=== PATIENT | male | born 1945 | race Caucasian/White ===

== ENCOUNTER 2021-09-06 16:08 | Observation (INO) | payer MEDICARE, BC, SELFPAY ==
[2021-09-06] VITALS (10 sets, daily range): BP systolic 156–207; BP diastolic 67–109; PULSE 64–88; RESP 12–18; TEMP 36.6–36.9; O2SAT 97–98; BMI 34.7
[2021-09-06] MEDS: hydrALAZINE 20 MG/ML Vial 10 MG IV (16:07)
--- NOTE | 2021-09-06 16:08 | PCM.HP.STD ---
HPI - General General Date of Admission: 09/06/21 Date of Service: 09/06/21 HPI Narrative KIRSTEN BROOKS, is a 76 M who is being directly admitted from [facility] for syncope. As per the was the witness, they are having breakfast in the deck in the morning. At the end of the breakfast, he suddenly passed out with no prodromal symptoms of chest pain/pressure, nausea, vomiting headache but he was diaphoretic. It lasted for about 1 minute and then he woke up with mild unawareness/confusion of the surrounding. He said at that time his was calling EMS and then was taken to [facility]. There he had a basic work-up done which did not show any remarkable abnormality. Potassium 3.6. Anion gap 11. Patient has history of CLL and his WBC count is chronically elevated. CBC shows 29.4 thousand WBC count, platelet 128,000. Magnesium 1.8. Chest x-ray reported normal. Twelve-lead EKG shows A. fib LAD RBBB, chronic old inferior infarct. 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 CLL (chronic lymphocytic leukemia) Essential hypertension Hypokalemia correction current use of anticoagulant Longstanding persistent atrial fibrillation Obstructive sleep apnea Old inferior wall myocardial infarction ST elevation (STEMI) myocardial infarction involving right coronary artery (04/2005) Tachy-kennedy syndrome Home Medications amlodipine 5 mg tablet 10 mg PO DAILY tab 09/02/21 [History Last Taken 09/06/21] atorvastatin 20 mg tablet 20 mg PO QHS #60 tab 09/02/21 [Rx Last Taken 09/05/21] clonidine HCl 0.1 mg tablet 0.1 mg PO BID #90 tab 09/02/21 [Rx Last Taken 09/06/21] doxazosin 8 mg tablet 8 mg PO QHS 09/02/21 [History Last Taken 09/05/21] hydralazine 50 mg tablet 50 mg PO TID #180 tab 09/02/21 [Rx Last Taken 09/06/21] losartan 100 mg tablet 100 mg PO DAILY #90 tab 09/02/21 [Rx Last Taken 09/06/21] potassium chloride 20 mEq tablet,extended release(part/cryst) 20 meq PO BID #180 tab 09/02/21 [Rx Last Taken 09/06/21] warfarin 5 mg tablet 5 mg PO QHS tab 09/02/21 [History Last Taken 09/04/21] warfarin 2.5 mg PO DAILY 09/06/21 [History Last Taken 09/05/21] Allergy/AdvReac Type Severity Reaction Status Date / Time Iodinated Contrast Media Allergy SOB Verified 09/02/21 11:47 Surgical History History of cardioversion (2013) History of coronary artery stent placement History of left heart catheterization (11/28/07) Social History Smoking Status: Former smoker ROS ROS Narrative Constitutional: Mild confusion after waking from syncope. On baseline now. HEENT: Reports systems reviewed and no addt'l complaints, except as documented Respiratory/Chest: Denies chest pain, shortness of breath at rest or with exertion Gastrointestinal: Denies coffee ground emesis, hematemesis or vomiting Genitourinary: Denies burning urination or new urinary tract symptoms Musculoskeletal: No joint pain and limited range of motion Neurologic: Denies seizure-like activity. No history of a stroke skin: Rash, scabbed over right side of neck behind the ear. Pain over the rash Endocrinology: Reports systems reviewed and no addt'l complaints, except as documented Hematologic/Lymphatic: CLL. Leukocytosis reports systems reviewed and no addt'l complaints, except as documented Patient not vaccinated with shingles. His had shingles couple years ago Rest 14 ROS are negative except as mentioned in HPI Vital Signs Vital Signs Vital Signs: 09/06/21 15:20 09/06/21 15:59 Temperature 98.4 F Temperature Source Oral Pulse Rate 72 Respiratory Rate 16 Respiratory Effort Normal Non-Labored Respiratory Depth Normal Respiratory Pattern Irregular Blood Pressure 207/94 H Blood Pressure Mean 131 Blood Pressure Source Monitor Blood Pressure Position Semi-Fowlers Blood Pressure Location Left Arm Pulse Ox 97 Oxygen Delivery Method Room Air Room Air Weight Weight: 228 lb 4 oz Body Mass Index (BMI) 34.7 Physical Exam Narrative Physical exam General: Alert, Oriented x3, Cooperative HEENT: Atraumatic, PERRLA, EOMI, Normocephalic Oral: No Gingival or Mucosal Lesions/ Ulcerations Neck: Supple, No JVD, Negative Carotid Bruits Lungs: Air entry equal in bilateral lung bases. No crepitation/rhonchi Cardiovascular: Irregular rhythm, A. fib, Normal S1, Normal S2, No murmurs Abdomen: Bowel Sounds Present, Soft, Non Tender, Non-Distended : No renal angle tenderness. No suprapubic tenderness. Extremities: No edema, Capillary Refill Less than 3 Seconds Skin: Brownish/black color discrete scabs over right side of neck behind the ear on posterior auricular nerve distribution. Mild tenderness. Musculoskeletal: No Tenderness to Palpation of Joints or Extremities Neurological: Cranial nerves II-XII grossly intact, DTR 2+/4 and Symmetrical, Neuro grossly intact Psych/Mental Status: Normal Affect, Appropriate. Assessment & Plan Assessment/Plan (1) Syncope: QUALIFIERS: Syncope type: vasovagal syncope Qualified Code(s): R55 - Syncope and collapse (2) Tachy-kennedy syndrome: PLAN: 1. Syncope most probably vasovagal or cardiogenic with history of paroxysmal A. fib on warfarin: Patient is being admitted in PCU As direct transfer from [facility]. Patient did not had any chest pain shortness of breath, palpitation. Patient had several serial troponin 3 all less than 35, negative. 2D echo ordered. Orthostatic vitals. Discussed with electrical panel builder Dr. Raymond and consult requested. Patient has event monitor as a part of trial study which was supposed to come out today. Needs review of event monitor rhythm strip. Patient saw Dr. Raymond on 09/02 for some sinus pauses on the monitor. Hold warfarin for anticipation of possible pacemaker insertion. 2. Essential hypertension: Patient blood pressure is elevated. He said his blood pressure was 130/80 in surgeons office as mentioned below. Probably patient not take today's medicine. Continue losartan 100 mg daily, Norvasc 10 mg daily, clonidine 0.1 mg twice daily and hydralazine 50 mg 3 times daily. Continue potassium supplement 20 M EQ twice daily as patient has history of chronic hypokalemia. 3. Right posterior auricular nerve distribution healed/scabbed rash most probably shingles: Patient had rash started as discrete visible rash which is scabbed black in color now. He saw surgeon and had a biopsy on last Tuesday. Patient is still has pain which is intermittently controlled by hydrocodone. Patient wants hydrocodone therefore continued. He agreed for Lyrica as gabapentin did not work in the past for neuropathic pain 4. Chronic A. fib on warfarin: Heart rate is controlled, 72/min, A. fib. Hold warfarin as mentioned above 5. History of coronary artery disease status post stent: Patient had cardiac stent in 2005. Last heart cath in 2013 for chest discomfort in [facility] he had BEN in L[place]. Last stress test was in 2018 and no evidence of ischemia was noted. He EF was low normal with wall motion segmental abnormalities found in the past. No echo in our system therefore 2D echo ordered admission of 6. CLL: WBC is chronically elevated. VTE prophylaxis, moderate risk: Bilateral SCDs. Hold warfarin. Living will/advanced directive/end of life care: Patient does not have living will or advanced directive. After discussion of benefits/risks procedures involved with full code, DNR CC arrest and DNR CC, the patient opted for full code. Patient does want artificial life support including intubation, tube feed, ventilator and/chest compression, central venous catheter, vasopressor and DC shock if needed Total time spent in [id number] encounter in discussion of advanced directive 16 minutes. Charges/Coding Visit Charges OBSV E&M: 27060 Initial observation care L3 Procedures Hospitalists Procedures: 85180 Advncd Care Plan 30 Min
[2021-09-06 17:08] LABS: International Normalized Ratio 2.7; Prothrombin Time (Protime)PT. 28.1 SECONDS (11.7-14.9)
[2021-09-06 17:20] LABS: Magnesium 1.7 mg/dL (1.6-2.6); Phosphorus 3.5 mg/dL (2.5-4.9)
[2021-09-06] MEDS: amLODIPine 10 MG Tablet PO (17:24)
[2021-09-06] MEDS: Pregabalin 50 MG Capsule PO ×2 (17:24→23:21)
[2021-09-06] MEDS: hydrALAZINE 50 MG Tablet PO ×2 (17:24→23:21)
[2021-09-06] MEDS: Lactated Ringers 1,000 ML 75 ML IV (17:33)
[2021-09-06] MEDS: Losartan Potassium 100 MG Tablet PO (18:43)
[2021-09-06] MEDS: HYDROcodone Bitartrate/Apap 5/325 Tablet PO (18:48)
[2021-09-06] MEDS: cloNIDine HCl 0.1 MG Tablet PO (23:21)
[2021-09-06] MEDS: Potassium Chloride Oral Tablet 20 MEQ PO (23:22)
[2021-09-06] MEDS: Doxazosin 4 MG Tablet 8 MG PO (23:22)
[2021-09-06] MEDS: Atorvastatin Calcium 20 MG Tablet PO (23:22)
[2021-09-07] VITALS (12 sets, daily range): BP systolic 153–179; BP diastolic 73–84; PULSE 56–88; RESP 18; TEMP 36.3–36.6; O2SAT 95–97
[2021-09-07] MEDS: hydrALAZINE 50 MG Tablet PO ×2 (05:14→15:52)
--- NOTE | 2021-09-07 05:55 | ECHOCS_ITS ---
Reason For Study: Syncope Procedure This was a 2D Doppler, Color Flow transthoracic echocardiogram. The study was technically difficult. Contrast injection was performed. Exam performed portable in patient room. Left Ventricle Normal LV size. Moderate assymetric septal hypertrophy. Moderate eccentric left ventricular hypertrophy. Left ventricular systolic function is normal. The estimated ejection fraction is 60 %. No regional wall motion abnormalities noted. Right Ventricle Normal RV size. Normal systolic function. Atria The left atrium is moderately enlarged. The right atrium is moderately enlarged. Mitral Valve There is mild mitral annular calcification. Tricuspid Valve Normal tricuspid valve. Aortic Valve Trisinus/trileaflet aortic valve. Mild focal aortic valve calcification. Pulmonic Valve Normal pulmonic valve. Great Vessels Normal aortic root. The pulmonary artery is normal size. Normal inferior vena cava. Pericardium/Pleural No pericardial effusion. Medication Diluted definity 3ml given slow IV push to enhance endocardial definition. MMode/2D Measurements & Calculations LVIDd: 5.1 cm IVSd: 1.6 cm LVOT diam: 2.0 cm LVIDs: 3.1 cm LVPWd: 1.7 cm RVDd: 5.1 cm FS: 38.8 % LVOT area: 3.0 cm2 Ao root diam: 4.0 cm LAV(MOD-bp): 92.8 ml LA A4 area: 26.1 cm2 LAV(MOD-bp) Indexed: 42.9 ml/m2 LAV(MOD-sp2): 95.7 ml LAV(MOD-sp4): 84.6 ml RA A4 area: 25.8 cm2 Doppler Measurements & Calculations MV E max keith: 143.9 cm/sec Ao V2 max: 181.5 cm/sec LV V1 max: 145.7 cm/sec Ao max P.2 mmHg LV V1 max P.5 mmHg ACRLA(V,D): 2.4 cm2 MR max keith: 537.7 cm/sec PA V2 max: 110.2 cm/sec MR max P.7 mmHg ECHO/Echo Complete W/ Contrast Interpretation Summary Normal LV size. Moderate assymetric septal hypertrophy. Moderate eccentric left ventricular hypertrophy. Left ventricular systolic function is normal. The estimated ejection fraction is 60 %. Contrast injection was performed. Ordering Physician: Matt Grace Referring Physician: Villa Sparks Performed By: Skyler Betancourt RCS
[2021-09-07 06:08] LABS: Absolute Lymphocyte Count 23.43 X10^3/uL (0.83-4.51); Absolute Neutrophil Count 3.2 X10^3/uL (2.0-7.7); Basophil# 0.05 X10^3/uL; Basophil% 0.2 % (0-1); Eosinophil# 0.21 X10^3/uL; Eosinophils% 0.8 % (0-5); Hematocrit 34.4 % (40-54); Hemoglobin 11.1 g/dL (13.0-16.5); Lymphocyte # 23.43 X10^3/ul (0.83-4.51); Lymphocyte % 85.1 % (19-41); Mean Corp Hgb Conc 32.3 g/dL (32-36); Mean Corpuscular Hgb 32.7 pg (27.0-32.0); Mean Corpuscular Volume 101.5 fL (80-94); Mean Platelet Vol. 10.7 fl (6.2-12.0); Monocyte# 0.67 X10^3/uL; Monocyte% 2.4 % (0-10); NRBC Flagged by Analyzer 0 % (0-5); Neutrophil # 3.16 X10^3/uL (2.7-7.7); Neutrophil % 11.4 % (47-70); POSITIVE DIFFERENTIAL YES; POSITIVE MORPHOLOGY YES; Platelet Count 133 K/mm3 (150-450); RBC Distribution Width CV 14.8 % (11.6-14.6); RBC Distribution Width SD 54.7 fl (35.1-43.9); Red Blood Count 3.39 M/mm3 (4.6-6.2); White Blood Count 27.5 K/mm3 (4.4-11.0)
[2021-09-07 06:14] LABS: Differential Indicated SCAN CRITERIA MET
[2021-09-07 06:38] LABS: International Normalized Ratio 2.6; Prothrombin Time (Protime)PT. 27.9 SECONDS (11.7-14.9)
[2021-09-07 07:01] LABS: Anion Gap 4 (5-15); BUN 27 mg/dL (7-18); BUN/Creat Ratio 24.5 RATIO (10-20); Calcium,Total 9.3 mg/dL (8.5-10.1); Chloride 110 mmol/L (98-107); EST Glomerular Filtration Rate 69 mL/min (>60); Est Glom Filt Rate - Afr Amer 83 mL/min (>60); Estimated Creatinine Clearance 53.55 ml/min; Glucose 95 mg/dL (74-106); Sodium Level 140 mmol/L (136-145); Thyroid Stim Hormone (TSH) 0.71 uIU/mL (0.358-3.74)
[2021-09-07 07:03] LABS: Anisocytosis 2+; Macrocytosis 2+
--- NOTE | 2021-09-07 09:08 | CON.PCM.CA_ITS ---
Assessment & Plan Assessment/Plan (1) Syncope: QUALIFIERS: Syncope type: vasovagal syncope Qualified Code(s): R55 - Syncope and collapse PLAN: He does have a recent episode of syncope. It is not clear whether this is due to a significant bradycardia arrhythmia. He had his event monitor in place and I would recommend that we attempt to get the rhythm strip to see whether there were any changes. Depending on those findings further recommendations will be made. (2) Longstanding persistent atrial fibrillation: PLAN: He does have evidence of longstanding persistent atrial fibrillation with a controlled ventricular response rate. The plan to be to continue him on the current medical therapy. We will hold the anticoagulation in the interim. (3) History of coronary artery stent placement: PLAN: He is status post previous angioplasty and stenting. He has not exhibited any angina and I do not think that he needs to be evaluated for any ischemic event. (4) Essential hypertension: PLAN: His blood pressure is suboptimally controlled at this particular time. I would recommend optimization of his blood pressure medication. He did have some changes to his clonidine and a change to his losartan as well as the hydralazine as noted prior. (5) Tachy-kennedy syndrome: PLAN: It is possible that he has tachybradycardia syndrome and may require evaluation with a permanent pacemaker at some point. I would like to see the results of his event monitor before making this decision. Thank you for allowing me to participate in the care of your patient. Please don't hesitate to call if any issues arise. HPI Consult Data Date of Consult: 09/07/21 HPI Narrative HPI Narrative: KIRSTEN BROOKS, is a 76 M who presents with a syncopal episode which happened while he was at a restaurant eating. We had just seen him in the office for evaluation.He has a history of chronic atrial fibrillation who is not on beta-milagros or calcium channel milagros who was noted to have pauses on his event monitor. He does have a history of coronary artery disease, chronic atrial fibrillation, chronic lymphocytic leukemia, and hypertension. His coronary disease was diagnosed in 2005 when he presented with an inferior [place] cardial infarction and underwent a drug-eluting stent placed to the right coronary artery. In 2007 he presented with chest discomfort underwent a repeat left heart catheterization which demonstrated patent stent noted in the right coronary artery minimal disease noted in the LAD and circumflex artery. His ejection fraction was low normal with wall motion abnormalities noted. In 2013 he presented with chest discomfort went to [place] emergency room was transferred to [facility] and underwent a repeat cardiac catheterization and was noted to have disease in the LAD and underwent a stent placement with a drug-eluting stent to the left anterior descending artery. He did undergo stress testing in 2018 and no evidence of ischemia was noted. He has had a long history of hypertension and has been on medication. it appears that more recently he has developed atrial fibrillation and had a monitor placed and was noted to have bradycardia arrhythmia especially during sleep. The however have been no pauses noted greater than 4 seconds. He is on a high dose of clonidine. He is completely asymptomatic from his atrial fibrillation he has had no dizziness or diaphoresis no near syncope or syncope no shortness of breath. His EKG demonstrates atrial fibrillation with a controlled ventricular response rate. No significant pauses are noted. He still has his event monitor in place. His physical exam demonstrates clear lung soto irregular rate and rhythm and no pedal edema. 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 CLL (chronic lymphocytic leukemia) Essential hypertension Hypokalemia intermediate current use of anticoagulant Longstanding persistent atrial fibrillation Obstructive sleep apnea Old inferior wall myocardial infarction ST elevation (STEMI) myocardial infarction involving right coronary artery (04/2005) Tachy-kennedy syndrome Home Medications amlodipine 5 mg tablet 10 mg PO DAILY tab 09/02/21 [History Last Taken 09/06/21] atorvastatin 20 mg tablet 20 mg PO QHS #60 tab 09/02/21 [Rx Last Taken 09/05/21] clonidine HCl 0.1 mg tablet 0.1 mg PO BID #90 tab 09/02/21 [Rx Last Taken 09/06/21] doxazosin 8 mg tablet 8 mg PO QHS 09/02/21 [History Last Taken 09/05/21] hydralazine 50 mg tablet 50 mg PO TID #180 tab 09/02/21 [Rx Last Taken 09/06/21] losartan 100 mg tablet 100 mg PO DAILY #90 tab 09/02/21 [Rx Last Taken 09/06/21] potassium chloride 20 mEq tablet,extended release(part/cryst) 20 meq PO BID #180 tab 09/02/21 [Rx Last Taken 09/06/21] warfarin 5 mg tablet 5 mg PO QHS tab 09/02/21 [History Last Taken 09/04/21] warfarin 2.5 mg PO DAILY 09/06/21 [History Last Taken 09/05/21] Allergy/AdvReac Type Severity Reaction Status Date / Time Iodinated Contrast Media Allergy SOB Verified 09/02/21 11:47 Surgical History History of cardioversion (2013) History of coronary artery stent placement History of left heart catheterization (11/28/07) Social History Smoking Status: Former smoker ROS Constitutional Constitutional: Denies fever(s) or weight loss Eyes Eyes: Reports systems reviewed and no addt'l complaints, except as documented ENT HEENT: Reports systems reviewed and no addt'l complaints, except as documented Cardiovascular Cardiovascular: Denies chest pain at rest, chest pain with activity, dyspnea at rest, dyspnea on exertion, edema, palpitations or paroxysmal nocturnal dyspnea Respiratory/Chest Respiratory/Chest: Denies dyspnea on exertion, productive cough, shortness of breath at rest or shortness of breath with exertion Gastrointestinal Gastrointestinal: Denies change in bowel habits, nausea, vomiting or weight changes Genitourinary Genitourinary: Denies difficulty urinating Musculoskeletal Musculoskeletal: Denies joint stiffness or muscle weakness Integumentary Integumentary: Denies lesions Neurologic Neurologic: Denies dizziness or syncope Psychiatric Psychiatric: Denies anxiety Endocrine Endocrinology: Denies excessive sweating or fatigue Hematologic/Lymphatic Hematologic/Lymphatic: Denies anemia Allergic/Immunologic Allergic/Immunologic: Denies seasonal rhinorrhea Physical Exam Const alert, oriented x3 and no apparent distress General Appearance: cooperative HEENT hearing grossly normal bilaterally Head and Scalp: atraumatic Eyes EOMs intact bilaterally Neck General: normal visual inspection Chest inspection of chest normal and palpation of chest normal Resp normal respiratory effort Auscultation: clear to auscultation bilaterally Cardio S1 normal heart sound and S2 normal heart sound Cardio Narrative: Irregular rate and rhythm Jugular Venous Distention: JVD GI normal to inspection, nondistended, normoactive bowel sounds Extremity normal capillary refill and no pedal edema Peripheral Pulses: Yes pulses 2+ throughout and femoral pulses present Skin no rashes or lesions noted Neuro oriented x3 and CN's II-XII intact bilaterally Psych Appearance: grossly normal and appropriate Risk Stratification Risk Stratification Applicable: No Objective Data Vital Signs: Vital Signs Temp Pulse Resp BP Pulse Ox 97.8 F 62 18 153/84 H 95 09/07/21 05:10 09/07/21 07:00 09/07/21 05:10 09/07/21 05:14 09/07/21 08:41 Oxygen Delivery Method Room Air Weight: 226 lb 13.69 oz Body Mass Index (BMI) 34.7 Intake & Output: Intake and Output for Last 24 Hours 09/05/21 09/06/21 09/07/21 23:59 23:59 23:59 Intake Total 480 / 600 170 / 170 Balance 480 / 600 170 / 170 Lab / Micro Data Result Diagrams: 09/07/21 05:30 09/07/21 05:30 Labs: Laboratory Results - last 24 hr 09/06/21 16:45: Phosphorus 3.5, Magnesium 1.7 09/06/21 16:45: PT 28.1 H, INR 2.7 09/07/21 05:30: PT 27.9 H, INR 2.6 09/07/21 05:30: WBC 27.5 H, RBC 3.39 L, Hgb 11.1 L, Hct 34.4 L, MCV 101.5 H, MCH 32.7 H, MCHC 32.3, RDW Std Deviation 54.7 H, RDW Coeff of Trav 14.8 H, Plt Count 133 L, MPV 10.7, Immature Gran % (Auto) 0.100, Neut % (Auto) 11.4 L, Lymph % (Auto) 85.1 H, [place] % (Auto) 2.4, Eos % (Auto) 0.8, Baso % (Auto) 0.2, Absolute Neuts (auto) 3.2, Absolute Lymphs (auto) 23.43 H, Nucleated RBC % 0, Anisocytosis 2+, Macrocytosis 2+ 09/07/21 05:30: Sodium 140, Potassium 4.0, Chloride 110 H, Carbon Dioxide 26.0, Anion Gap 4 L, BUN 27 H, Creatinine 1.10, Estim Creat Clear Calc 53.55, Est GFR (MDRD) Af Amer 83, Est GFR (MDRD) Non-Af 69, BUN/Creatinine Ratio 24.5 H, Glucose 95, Calcium 9.3, TSH 0.71 Cardiology Labs/Tests 09/06/21 16:45: Phosphorus 3.5, Magnesium 1.7 09/06/21 16:45: PT 28.1 H, INR 2.7 09/07/21 05:30: PT 27.9 H, INR 2.6 09/07/21 05:30: WBC 27.5 H, RBC 3.39 L, Hgb 11.1 L, Hct 34.4 L, MCV 101.5 H, MCH 32.7 H, MCHC 32.3, Plt Count 133 L, MPV 10.7, Immature Gran % (Auto) 0.100, Neut % (Auto) 11.4 L, Lymph % (Auto) 85.1 H, [place] % (Auto) 2.4, Eos % (Auto) 0.8, Baso % (Auto) 0.2, Absolute Neuts (auto) 3.2, Nucleated RBC % 0 09/07/21 05:30: Sodium 140, Potassium 4.0, Chloride 110 H, Carbon Dioxide 26.0, Anion Gap 4 L, BUN 27 H, Creatinine 1.10, Est GFR (MDRD) Af Amer 83, Est GFR (MDRD) Non-Af 69, BUN/Creatinine Ratio 24.5 H, Glucose 95, Calcium 9.3 Rhythm: EKG: ECHO: Stress Test: Cardiac Cath: PCI: CT Surgery: Holter monitor: EPS: PPM: CXR: Chest CT Scan:
[2021-09-07] MEDS: cloNIDine HCl 0.1 MG Tablet PO (10:47)
[2021-09-07] MEDS: Potassium Chloride Oral Tablet 20 MEQ PO (10:47)
[2021-09-07] MEDS: HYDROcodone Bitartrate/Apap 5/325 Tablet PO (10:47)
[2021-09-07] MEDS: Losartan Potassium 100 MG Tablet PO (10:47)
[2021-09-07] MEDS: amLODIPine 10 MG Tablet PO (10:47)
[2021-09-07] MEDS: Pregabalin 50 MG Capsule PO (10:47)
[2021-09-07] MEDS: DiphenhydrAMINE 25 MG Capsule PO (13:11)
--- NOTE | 2021-09-07 13:11 | PCM.PROGNOTE ---
Subjective Subjective He is feeling well at this point in time. He had no further episodes overnight. He does indicate that he is having some pain and is not on his scheduled [place]. He indicates he takes this every 6 hours during the day and would like it to be scheduled this way. It appears that it is ordered as needed but the patient was not aware of this. He does have an event monitor placed for bradycardia but has had no previous syncope episodes as he did with this admission. Objective Data Objective Data Vital Signs: Vital Signs Temp Pulse Resp BP Pulse Ox 97.8 F 88 18 176/83 H 97 09/07/21 10:40 09/07/21 11:00 09/07/21 10:40 09/07/21 10:40 09/07/21 10:40 Oxygen Delivery Method Room Air Weight: 102.9 kg Body Mass Index (BMI) 34.7 Intake & Output: Intake and Output for Last 24 Hours 09/05/21 09/06/21 09/07/21 23:59 23:59 23:59 Intake Total 480 / 600 1410 / 1410 Balance 480 / 600 1410 / 1410 Lab / Micro Data Result Diagrams: 09/07/21 05:30 09/07/21 05:30 Labs: Laboratory Results - last 24 hr 09/06/21 16:45: Phosphorus 3.5, Magnesium 1.7 09/06/21 16:45: PT 28.1 H, INR 2.7 09/07/21 05:30: PT 27.9 H, INR 2.6 09/07/21 05:30: WBC 27.5 H, RBC 3.39 L, Hgb 11.1 L, Hct 34.4 L, MCV 101.5 H, MCH 32.7 H, MCHC 32.3, RDW Std Deviation 54.7 H, RDW Coeff of Trav 14.8 H, Plt Count 133 L, MPV 10.7, Immature Gran % (Auto) 0.100, Neut % (Auto) 11.4 L, Lymph % (Auto) 85.1 H, [place] % (Auto) 2.4, Eos % (Auto) 0.8, Baso % (Auto) 0.2, Absolute Neuts (auto) 3.2, Absolute Lymphs (auto) 23.43 H, Nucleated RBC % 0, Anisocytosis 2+, Macrocytosis 2+ 09/07/21 05:30: Sodium 140, Potassium 4.0, Chloride 110 H, Carbon Dioxide 26.0, Anion Gap 4 L, BUN 27 H, Creatinine 1.10, Estim Creat Clear Calc 53.55, Est GFR (MDRD) Af Amer 83, Est GFR (MDRD) Non-Af 69, BUN/Creatinine Ratio 24.5 H, Glucose 95, Calcium 9.3, TSH 0.71 Radiography Diagnostic Testing: Radiology Impression Echocardiogram 09/07/21 05:55 Interpretation Summary Normal LV size. Moderate assymetric septal hypertrophy. Moderate eccentric left ventricular hypertrophy. Left ventricular systolic function is normal. The estimated ejection fraction is 60 %. Contrast injection was performed. Ordering Physician: Matt Grace Referring Physician: Villa Sparks Performed By: Skyler Betancourt RCS Physical Exam Const alert, oriented x3 and no apparent distress Constitutional Narrative: Obese older white male sitting up in bed, appears comfortable, watching television, nontoxic General Appearance: cooperative and well developed HEENT normocephalic, head/scalp atraumatic and moist oral mucous membranes HEENT Narrative: Rash on right side of his face/neck area which appears to be consistent with healing zoster-patient just had this biopsied last Tuesday at the [facility] Resp normal respiratory effort, normal air movement and clear to auscultation bilaterally Auscultation: Negative for rales, rhonchi or wheezes Cardio regular rate, regular rhythm, S1 normal heart sound, S2 normal heart sound, no murmurs, no rub and no gallops GI normal to inspection, nondistended, normoactive bowel sounds, soft to palpation, non-tender and non-distended Palpation: Negative for no hepatosplenomegaly Extremity no clubbing, cyanosis or edema Extremity Narrative: Pedal pulses are 2+ Neuro CN's II-XII intact bilaterally, no focal motor deficits and no sensory deficits noted Neuro Narrative: Mild generalized weakness Speech: speech normal Motor Exam: general weakness Psych thought process normal, cooperative and affect normal Appearance: appropriate Assessment & Plan Assessment/Plan (1) Syncope: QUALIFIERS: Syncope type: vasovagal syncope Qualified Code(s): R55 - Syncope and collapse (2) Tachy-kennedy syndrome: (3) Rash: (4) Thrombocytopenia: (5) Anemia: PLAN: Syncope with possible tachybradycardia syndrome -First ever syncopal episode yesterday while at a restaurant eating -Patient has event monitor in place -Cardiology plans to review rhythm strips from event monitor to assess for changes and make decisions based on these findings -Continue to hold anticoagulation in the event that patient needs a pacemaker Right facial rash -Sounds as if it may have been shingles however biopsies are pending -Biopsy done at [facility] and pathology is pending Thrombocytopenia -Baseline platelet count is unclear -Repeat CBC in a.m. normocytic anemia -Mild -Unclear if this is acute or chronic however suspect chronic with history of CLL -Repeat CBC in a.m. Essential hypertension -Patient was suboptimally controlled admission -He has had recent changes in clonidine, losartan, and hydralazine -Continue amlodipine -We will continue to monitor and further adjust if needed Hyperlipidemia -Continue atorvastatin Persistent atrial fibrillation -Anticoagulation is on hold for possible pacer needs -Possible tachybradycardia syndrome -Patient is not on any rate controlling medication BPH -Continue doxazosin CLL -Patient follows at [facility] in [place] however is recommended follow-up in [place] and I will give him Dr. Garcia's number on discharge -Patient is currently not any formal treatment for this DVT prophylaxis -Current INR is 2.6 -Start subcu Lovenox once patient is subtherapeutic with an INR less than 2 CODE STATUS -DNR CCA with no intubation Charges/Coding Visit Charges Inpatient E&M: 50989 Subs Hosp L2
--- NOTE | 2021-09-07 15:28 | DS.PCM_ITS ---
Providers Date of Admission: 09/06/21 Primary Care Physician: JIM PACHECO MD Consultations 09/06/21 16:32 Consult: Cardiology Routine Consulting Provider: Dakotah Raymond Reason for Consult: syncope, has event monitor, sinus kennedy EMERGENT Consult: No MD Notified: Yes Date Notified: 09/06/21 Time Notified: 16:32 Method of Notification: Verbal Reason For Visit: SYNCOPE Diagnosis Discharge Diagnosis (1) Syncope: Status: Acute Code(s): R55 - Syncope and collapse Qualifiers: Syncope type: vasovagal syncope Qualified Code(s): R55 - Syncope and collapse (2) Tachy-kennedy syndrome: Status: Chronic Code(s): I49.5 - Sick sinus syndrome (3) Rash: Status: Acute Code(s): R21 - Rash and other nonspecific skin eruption (4) Thrombocytopenia: Status: Acute Code(s): D69.6 - Thrombocytopenia, unspecified (5) Anemia: Status: Acute Code(s): D64.9 - Anemia, unspecified Medications at Discharge Home Medications amlodipine 5 mg tablet 10 mg PO DAILY tab 09/02/21 atorvastatin 20 mg tablet 20 mg PO QHS #60 tab 09/02/21 doxazosin 8 mg tablet 8 mg PO QHS 09/02/21 hydralazine 50 mg tablet 50 mg PO TID #180 tab 09/02/21 losartan 100 mg tablet 100 mg PO DAILY #90 tab 09/02/21 potassium chloride 20 mEq tablet,extended release(part/cryst) 20 meq PO BID #180 tab 09/02/21 warfarin 5 mg tablet 5 mg PO QHS tab 09/02/21 warfarin 2.5 mg PO DAILY 09/06/21 clonidine HCl 0.2 mg PO BID #60 tab 09/07/21 Hospital Course Operations None Procedures 2-D Echocardiogram and EKG Summary of Care Provided Minutes Spent on Discharge: 36 Hospital Course: Mr. Patrick is a 76-year-old white male who presented to the emergency department at [facility] on 09/06/2021 with a syncopal episode that occurred while he was eating at a restaurant. He has a known history of chronic atrial fibrillation and has not been on a beta-milagros or calcium channel milagros and was previously noted to have pauses on his event monitor. He has a known history of coronary artery disease as well as chronic lymphocytic leukemia and hypertension. He follows with Dr. Aguila in the outpatient office. His most recent cardiac catheterization was performed in 2013 at which time he was transferred to [facility] where he underwent a repeat cardiac catheterization and found to have disease in the LAD and had a drug-eluting stent placed at that time. He underwent stress testing in 2018 and had no evidence of ischemia. He evidently had more recently developed atrial fibrillation and was given an event monitor as he was noted to have some bradycardia arrhythmia especially during sleep. No pauses thus far had been greater than 4 seconds and he has been fairly asymptomatic with regards to his atrial fibrillation. He was admitted to the PCU and a repeat echocardiogram was performed and showed moderate asymmetric septal hypertrophy with moderate eccentric LVH and an EF of 60%. Strips from his event monitor were evaluated by cardiology and he had no arrhythmias at the time of his syncopal episode. It is suspected by cardiology that this was more likely a vasovagal event and that we would be able to discharge him home safely. Cardiology requested that we increase his clonidine to 0.2 mg p.o. twice daily and they indicated they would have him follow-up for a repeat event monitor after this event monitor has been completed. He is to follow-up with cardiology as directed by their office and to follow-up with his primary care physician in the next 2 weeks. He was discharged home in stable condition on 09/07/2021. Patient did indicate he wanted to follow-up down in [place] for oncology with regards to his CLL and was given Dr. Garcia's information. Discharge diagnoses: Vasovagal syncope Right facial rash Thrombocytopenia Normocytic anemia Essential hypertension Hyperlipidemia Persistent atrial fibrillation BPH CLL Weight / BMI Weight Weight: 102.9 kg Body Mass Index (BMI) 34.7 ABG / Lab / Microbiology Data Result Diagrams: 09/07/21 05:30 09/07/21 05:30 Laboratory: Laboratory Results - last 24 hr 09/06/21 16:45: Phosphorus 3.5, Magnesium 1.7 09/06/21 16:45: PT 28.1 H, INR 2.7 09/07/21 05:30: PT 27.9 H, INR 2.6 09/07/21 05:30: WBC 27.5 H, RBC 3.39 L, Hgb 11.1 L, Hct 34.4 L, MCV 101.5 H, MCH 32.7 H, MCHC 32.3, RDW Std Deviation 54.7 H, RDW Coeff of Trav 14.8 H, Plt Count 133 L, MPV 10.7, Immature Gran % (Auto) 0.100, Neut % (Auto) 11.4 L, Lymph % (Auto) 85.1 H, [place] % (Auto) 2.4, Eos % (Auto) 0.8, Baso % (Auto) 0.2, Absolute Neuts (auto) 3.2, Absolute Lymphs (auto) 23.43 H, Nucleated RBC % 0, Anisocytosis 2+, Macrocytosis 2+ 09/07/21 05:30: Sodium 140, Potassium 4.0, Chloride 110 H, Carbon Dioxide 26.0, Anion Gap 4 L, BUN 27 H, Creatinine 1.10, Estim Creat Clear Calc 53.55, Est GFR (MDRD) Af Amer 83, Est GFR (MDRD) Non-Af 69, BUN/Creatinine Ratio 24.5 H, Glucose 95, Calcium 9.3, TSH 0.71 Radiography Diagnostic Testing: Radiology Impression Echocardiogram 09/07/21 05:55 Interpretation Summary Normal LV size. Moderate assymetric septal hypertrophy. Moderate eccentric left ventricular hypertrophy. Left ventricular systolic function is normal. The estimated ejection fraction is 60 %. Contrast injection was performed. Ordering Physician: Matt Grace Referring Physician: Jim Pacheco Performed By: Skyler Betancourt RCS D/C Instructions Discharge Diet: Low fat / Low cholesterol Discharge Activity: Return to Normal Activity Meaningful Use Info Meaningful Use Diagnoses (Choose all that apply): None applicable Discharge Plan Admission Admit Date/Time: 09/06/21 16:08 Primary Reason for Your Visit: Syncope Attending Provider: Dillon,Arpita Primary Care Provider: JIM PACHECO Consulting Providers: Dakotah Raymond ; Matt Grace Discharge Orders/Prescriptions Prescriptions: New clonidine HCl 0.2 mg tablet 0.2 mg PO BID Qty: 60 RF: 0 Continued doxazosin 8 mg tablet 8 mg PO QHS RF: 0 warfarin 5 mg tablet 5 mg PO QHS RF: 0 amlodipine 5 mg tablet 10 mg PO DAILY RF: 0 losartan 100 mg tablet 100 mg PO DAILY Qty: 90 RF: 3 atorvastatin 20 mg tablet 20 mg PO QHS Qty: 60 RF: 3 potassium chloride 20 mEq tablet,ER particles/crystals 20 meq PO BID Qty: 180 RF: 3 hydralazine 50 mg tablet 50 mg PO TID Qty: 180 RF: 3 warfarin 2.5 mg Tablet 2.5 mg PO DAILY RF: 0 Discontinued clonidine HCl 0.1 mg tablet 0.1 mg PO BID Qty: 90 RF: 2 Referrals / Follow Up: Dakotah Raymond MD [STAFF PHYSICIAN] - See Referral Note (As scheduled) JIM PACHECO MD [Primary Care Provider] - Jonas Garcia DO [STAFF PHYSICIAN] - See Referral Note (For CLL if you would like) Disposition Disposition (needs filled in before D/C Order can be placed): Home, Self Care Charges/Coding Visit Charges Inpatient E&M: 35799 Disch Hosp
== END 2021-09-07 15:30 | disposition home or self-care (01) ==
PROVIDERS: Admitting Provider Internal Medicine; PCP Internal Medicine Cardiovascular Disease; Visit Provider Internal Medicine
DX: R55 Syncope and collapse (principal); C91.10 Chronic lymphocytic leukemia of B-cell type not having achieved remission; I48.11 Longstanding persistent atrial fibrillation; I49.5 Sick sinus syndrome; D69.6 Thrombocytopenia, unspecified; R21 Rash and other nonspecific skin eruption; E78.5 Hyperlipidemia, unspecified; N40.0 Benign prostatic hyperplasia without lower urinary tract symptoms; R41.0 Disorientation, unspecified; I25.10 Atherosclerotic heart disease of native coronary artery without angina pectoris; Z79.01 Long term (current) use of anticoagulants; D64.9 Anemia, unspecified; I10 Essential (primary) hypertension; Z87.891 Personal history of nicotine dependence; Z79.899 Other long term (current) drug therapy; I25.2 Old myocardial infarction; I45.10 Unspecified right bundle-branch block; G47.33 Obstructive sleep apnea (adult) (pediatric); Z95.5 Presence of coronary angioplasty implant and graft
CPT/HCPCS: 36415; 80048; 83735; 84100; 84443; 85025; 85610; 93306; 96361; 96374; 97166; 97802; 99218; J7120; Q9957; A4216; C8929; G0378

== ENCOUNTER 2021-09-17 15:22 | Observation (INO) | payer MEDICARE, BC, SELFPAY ==
[2021-09-09 10:40] LABS: Bacteria 0 SEEN /hpf (None Seen); Mucous, Urine 0 SEEN /hpf (<or=2+); Red Blood Cells-Urine 0 SEEN /hpf (0-5)
[2021-09-09 11:44] LABS: Color, Urine Yellow (Yellow); Glucose, Dipstick Normal (Normal); Ketone-Dipstick Negative (Negative); Leukocyte Esterase-Dipstick 25 /ul (Negative); Nitrite-Dipstick Negative (Negative); Occult Blood-Urine Negative /ul (Negative); Protein-Dipstick Negative (Negative); Urine Bilirubin Dipstick Negative (Negative); Urine Clarity Sl. Cloudy (Clear); Urine Urobilinogen Normal (Normal)
[2021-09-09 11:55] LABS: Squamous Epithelial Cells - UA 0-5 SEEN /hpf (0-5); White Blood Cells 0-5 SEEN /hpf (0-5)
[2021-09-09 12:18] LABS: Anion Gap 5 (5-15); BUN 24 mg/dL (7-18); BUN/Creat Ratio 20.5 RATIO (10-20); Calcium,Total 9.1 mg/dL (8.5-10.1); Chloride 106 mmol/L (98-107); Creatinine, Serum 1.17 mg/dL (0.70-1.30); EST Glomerular Filtration Rate 64 mL/min (>60); Est Glom Filt Rate - Afr Amer 78 mL/min (>60); Glucose 98 mg/dL (74-106); Potassium 4.1 mmol/L (3.5-5.1); Sodium Level 140 mmol/L (136-145)
[2021-09-10 08:32] VITALS: BMI 34.7
[2021-09-11 10:36] LABS: Prothrombin Time Fingerstick 34.7 SEC (11.7-14.9)
[2021-09-14 11:11] LABS: INR Fingerstick 2.3; Prothrombin Time Fingerstick 26.4 SEC (11.7-14.9)
[2021-09-17] VITALS (13 sets, daily range): BP systolic 162–185; BP diastolic 75–89; PULSE 56–64; RESP 12–18; TEMP 36.4–36.7; O2SAT 96–100; BMI 34.5
[2021-09-17 10:30] LABS: INR Fingerstick 1.2; Prothrombin Time Fingerstick 15.3 SEC (11.7-14.9)
--- NOTE | 2021-09-17 13:33 | CL.IE_ITS ---
Patient: KIRSTEN BROOKS Study Date: 09/17/2021 Performing: Dakotah Raymond MD : 1945 Age: 76 Gender: male PROCEDURES PERFORMED [id number])INITIAL PACER INSERT+VENTRICULAR LEAD INDICATIONS Syncope Atrial fibrillation Sinoatrial node dysfunction/Sick sinus syndrome PROCEDURE DETAILS The patient was brought to the Catheterization Lab in the postabsorptive nonsedated state. Infor med consent was obtained prior to the procedure. Local anesthetic was given subcutaneously to the le ft upper chest area with Lidocaine 2%. Incision was made to the left upper chest. Access was achieved and a guidewire was advanced into the left subclavian vein. PPM ventricular lead was inserted / posi tioned to right ventricular septal wall. PPM ventricular lead testing performed. PPM ventricular lead testing performed. The Ventricular PM lead sutured in place with 2-0 Silk. PPM generator was bridal consultant d to the lead(s) and inserted into the pocket. PPM generator was then interrogated by the applications programmer analyst. Device pocket was irrigated with antibiotic, Ancef 1gm. Subcutaneous closure was completed with 3-0 Vicryl. Skin closure was completed with 4-0 Vicryl. Steri-strips applied to left subclavicular incisi on. The patient tolerated the procedure well. Estimated Blood Loss: 10 ml's IMPLANTED / EX-PLANTED DEVICES IMPLANTED DEVICE(S): PPM Ventricular lead - Sheet Metal Apprentice: [employer], Model # [id number] , Serial # [id number] PPM Generator - Sheet Metal Apprentice: [employer], Model # Essentio MRI SR Pacemaker [id number] , Serial # [id number] DEVICE PARAMETERS VENTRICULAR LEAD PARAMETERS: R wave- 6.4 (mV) Current- 0.6 (mA) threshold- 0.4 (V) impedence- 687 (OHMS) DEVICE PARAMETERS: Mode- VVI Lower rate- 60 CONCLUSIONS / RECOMMENDATIONS Device Conclusions: Successful implantation of a single chamber pacemaker Device Recommendations: Follow up with Primary Care Physician PROCEDURE MEDICATIONS Versed 1 mg IV Fentanyl 50 mcg IV Oxygen: 2 L/min via nasal cannula Antibiotic given in appropriate timeframe. Ancef 2 Gm IV @ 09/17/2021 11:54:09 Signed By Dakotah Raymond MD On 09/17/2021 13:32:25 Dakotah Raymond MD
[2021-09-17] MEDS: hydrALAZINE 50 MG Tablet PO ×2 (17:04→21:41)
[2021-09-17] MEDS: Doxazosin 4 MG Tablet 8 MG PO (21:42)
[2021-09-17] MEDS: cloNIDine HCl 0.2 MG Tablet PO (21:42)
[2021-09-17] MEDS: Potassium Chloride Oral Tablet 20 MEQ PO (21:43)
[2021-09-17] MEDS: Acyclovir 200 MG Capsule 400 MG PO (21:43)
[2021-09-17] MEDS: Atorvastatin Calcium 20 MG Tablet PO (21:43)
[2021-09-17] MEDS: HYDROcodone Bitartrate/Apap 5/325 Tablet PO (21:44)
[2021-09-17] MEDS: 0.9% Saline Lock 10 ML Syringe IV (21:53)
[2021-09-18] VITALS (7 sets, daily range): BP systolic 135–168; BP diastolic 69–82; PULSE 60–65; RESP 17–18; TEMP 36.3–36.6; O2SAT 96
--- NOTE | 2021-09-18 05:06 | RAD_ITS ---
STUDY: X-RAY CHEST REASON FOR EXAM: Male, 76 years old. Status post ICD placement. TECHNIQUE: AP Inspiration and expiration and lateral views. COMPARISON: None FINDINGS: Implanted cardiac device left chest with a single intact lead extending into the right ventricle. No evidence of pneumonia, pulmonary edema, pneumothorax or pleural effusion. Cardiac silhouette, hilar and mediastinal contours with no acute findings. Mild cardiomegaly. Atherosclerosis of the thoracic aorta. Degenerative osseous changes with no acute osseous abnormality. RAD/Chest 3 View IMPRESSION: No acute findings. Electronically Signed: Bernardo Bonner MD at 6:34 EDT Reading Location ID and State: [address] [place] [address] Tel , Service support ,
[2021-09-18] MEDS: hydrALAZINE 50 MG Tablet PO (05:21)
[2021-09-18] MEDS: Losartan Potassium 100 MG Tablet PO (09:02)
[2021-09-18] MEDS: cloNIDine HCl 0.2 MG Tablet PO (09:02)
[2021-09-18] MEDS: Potassium Chloride Oral Tablet 20 MEQ PO (09:02)
[2021-09-18] MEDS: Acyclovir 200 MG Capsule 400 MG PO (09:03)
--- NOTE | 2021-09-18 09:54 | PN.CARD_ITS ---
Subjective Subjective Patient seen and evaluated Objective Data Vital Signs: Vital Signs Temp Pulse Resp BP Pulse Ox 97.4 F L 65 18 168/82 H 96 09/18/21 04:00 09/18/21 05:21 09/18/21 04:00 09/18/21 05:21 09/18/21 04:00 Oxygen Delivery Method Room Air Weight: 227 lb 4.992 oz Body Mass Index (BMI) 34.5 Intake & Output: Intake and Output for Last 24 Hours 09/16/21 09/17/21 09/18/21 23:59 23:59 23:59 Intake Total 520 / 520 Output Total 1600 / 1600 800 / 800 Balance -1080 / -1080 -800 / -800 Lab / Micro Data Result Diagrams: 09/09/21 10:39 Labs: Laboratory Results - last 24 hr 09/17/21 10:27: POC PT 15.3 H, INR 1.2 Cardiology Labs/Tests 09/17/21 10:27: INR 1.2 Rhythm: EKG: ECHO: Stress Test: Cardiac Cath: PCI: CT Surgery: Holter monitor: EPS: PPM: CXR: Chest CT Scan: Radiography Diagnostic Testing: Radiology Impression Chest X-Ray 09/18/21 05:06 IMPRESSION: No acute findings. Electronically Signed: Bernardo Bonner MD at 6:34 EDT Reading Location ID and State: [facility] / [place] Tel , Service support , Assessment & Plan Assessment/Plan (1) History of permanent cardiac pacemaker placement: PLAN: He is status post permanent pacemaker implantation. He appears to be doing well. We will follow-up in our office. No change with his medications.
--- NOTE | 2021-09-18 09:58 | DCINST_ITS ---
Discharge Instructions Diet Discharge Diet: 1999 Calorie Control Diet Activity Discharge Activity: May Not Drive May shower in (days): 3 Dressing / Incision Call your doctor if your incision/area has: Continuous Slow Oozing, Sudden Increased Bleeding, Increased Pain/ Swelling, Foul Smelling Discharge and Swelling at the incision site Follow Up Care Please Follow Up With: Dakotah Raymond MD When: Follow-up in pacemaker clinic on September 24 at 10:30 AM Test Results: Test results from this visit will be discussed in further detail at your follow- up appointment, if applicable. Pending Tests Upon Discharge: Hold your Coumadin until that appointment Discharge Plan Admission Admit Date/Time: 09/17/21 15:22 Attending Provider: Dakotah Raymond Primary Care Provider: JIM PACHECO Discharge Orders/Prescriptions Prescriptions: Continued doxazosin 8 mg tablet 8 mg PO QHS amlodipine 5 mg tablet 10 mg PO DAILY losartan 100 mg tablet 100 mg PO DAILY Qty: 90 3RF atorvastatin 20 mg tablet 20 mg PO QHS Qty: 60 3RF potassium chloride 20 mEq tablet,ER particles/crystals 20 meq PO BID Qty: 180 3RF hydralazine 50 mg tablet 50 mg PO TID Qty: 180 3RF hydrocodone-acetaminophen 5-325 mg tablet 1 tab PO Q8H PRN (Reason: pain) clonidine HCl 0.2 mg tablet 0.2 mg PO BID Qty: 60 0RF acyclovir 400 mg Tablet 400 mg PO BID Discontinued warfarin 5 mg tablet 5 mg PO QHS Label Comments: PCP managing Rx Instructions: Tue warfarin 2.5 mg Tablet 2.5 mg PO DAILY Rx Instructions: takes //Tuesday/Tuesday Referrals / Follow Up: JIM PACHECO MD [Primary Care Provider] - Disposition Disposition (needs filled in before D/C Order can be placed): Home, Self Care
[2021-09-18] MEDS: amLODIPine 10 MG Tablet PO (11:10)
== END 2021-09-18 09:57 | disposition home or self-care (01) ==
LOC: PCU 15:42
PROVIDERS: Admitting Provider Internal Medicine Cardiovascular Disease; PCP Internal Medicine Cardiovascular Disease; Referring Provider Internal Medicine Cardiovascular Disease; Visit Provider Internal Medicine Cardiovascular Disease
DX: Z45.018 Encounter for adjustment and management of other part of cardiac pacemaker (principal); C91.10 Chronic lymphocytic leukemia of B-cell type not having achieved remission; I48.11 Longstanding persistent atrial fibrillation; I49.5 Sick sinus syndrome; R55 Syncope and collapse; I10 Essential (primary) hypertension; I25.10 Atherosclerotic heart disease of native coronary artery without angina pectoris; I25.2 Old myocardial infarction; G47.33 Obstructive sleep apnea (adult) (pediatric); Z79.899 Other long term (current) drug therapy; Z79.01 Long term (current) use of anticoagulants; Z87.891 Personal history of nicotine dependence; Z53.09 Procedure and treatment not carried out because of other contraindication
CPT/HCPCS: 33207; 36415; 36416; 71047; 80048; 81001; 85610; 97802; 99152; 99153; 99218; J7040; J7050; A4216; C1769; C1894; G0378